=== PATIENT | female | born 1950 | race Caucasian/White ===

== ENCOUNTER 2018-03-05 07:06 | Day surgery (SDC) | payer MEDICARE, OTHER ==
[~2018-03-05 07:06] MED LIST: AMPYRA10 MG PO; ERGO50000 PO; ESCI20 PO; NATALIZUMAB IV; OSEL75CA PO; Percocet 5-3251 EACH PO; TRAZ100 PO; Tysabri300 MG/15 IV
[2018-03-05 09:45] LABS: Free Thyroxine 1.18 ng/dL (0.70-1.60)
[2018-03-05 09:48] LABS: Thyroid Stimulating Hormone 0.018 uIU/mL (0.360-4.800); Triiodothyronine, Free 3.99 pg/mL (2.18-3.98)
== END 2018-03-05 22:56 | disposition home or self-care (01) ==
LOC: MOI MAM 07:06
PROVIDERS: Nurse Practitioner Family
PROC: 0HBU3ZX Excision of Left Breast, Percutaneous Approach, Diagnostic (ICD-10-PCS; principal; 2018-03-05)
DX: C50.912 Malignant neoplasm of unspecified site of left female breast (principal); Z17.0 Estrogen receptor positive status [ER+]
CPT/HCPCS: 19083; 36415; 77065; 84439; 84443; 84481; 88305; 88360; A4648; G0279

== ENCOUNTER 2018-03-22 00:57 | Day surgery (SDC) | payer MEDICARE, OTHER | END 2018-03-22 22:33 | disposition home or self-care (01) | LOC: MOI US 00:57 | PROC: BH41ZZZ Ultrasonography of Left Breast (ICD-10-PCS; principal; 2018-03-22) | DX: C50.812 Malignant neoplasm of overlapping sites of left female breast (principal) | CPT/HCPCS: 19285; 77065; G0279 ==

== ENCOUNTER 2018-03-30 08:00 | Day surgery (SDC) | payer MEDICARE, OTHER ==
[~2018-03-30] VITALS: Ht 170.2 cm; Wt 104.8 kg
[~2018-03-30 08:00] MED LIST changes: +ATOR20 PO; +CHOL10002 PO; +REBIF REBI44 MCG/0.5 SC
[2018-04-13] MEDS ORDERED: ACET325 PO (09:46)
== END 2018-03-30 13:54 | disposition home or self-care (01) ==
LOC: NM 08:00 → ORSCMMR 08:00 → NM 09:00 → ORSCMMR 13:54
PROVIDERS: Surgery
PROC: 07B60ZX Excision of Left Axillary Lymphatic, Open Approach, Diagnostic (ICD-10-PCS; principal; 2018-03-30 10:30)
PROC: 0HBU0ZZ Excision of Left Breast, Open Approach (ICD-10-PCS; principal; 2018-03-30 10:30)
DX: C50.812 Malignant neoplasm of overlapping sites of left female breast (principal); Z17.0 Estrogen receptor positive status [ER+]; C77.3 Secondary and unspecified malignant neoplasm of axilla and upper limb lymph nodes; G35 Multiple sclerosis; E05.90 Thyrotoxicosis, unspecified without thyrotoxic crisis or storm; E66.01 Morbid (severe) obesity due to excess calories; Z68.36 Body mass index [BMI] 36.0-36.9, adult; Z79.899 Other long term (current) drug therapy; Z87.891 Personal history of nicotine dependence
CPT/HCPCS: 38792; 76098; 88305; 88307; A9520; J0690; J1100; J1885; J2250; J2405; J3010; J7120; Q9968